=== PATIENT | female | born 1940 | race Caucasian/White ===

== ENCOUNTER 2023-09-25 14:47 | Day surgery (SDC) | payer MEDICARE, SELFPAY ==
[2023-09-25] VITALS (9 sets, daily range): BP systolic 25–143; BP diastolic 62–83; BMI 22.4
== END 2023-09-25 18:43 | disposition home or self-care (01) ==
LOC: SDS 14:47
DX: K83.8 Other specified diseases of biliary tract (principal); R74.8 Abnormal levels of other serum enzymes
CPT/HCPCS: 43264; 74330; 76000; C1769